=== PATIENT | female | born 1980 ===

== ENCOUNTER 2017-05-18 14:17 | Emergency (ER) | payer SELFPAY ==
[2017-05-18 14:23] VITALS: BP 123/79; PULSE 99; RESP 16; TEMP 98.9; O2SAT 97
--- NOTE | 2017-05-18 14:42 | ED PDOC ---
HPI: Female Pain Time Seen by Provider: 05/18/17 14:24 Chief Complaint (Nursing): Female Genitourinary Chief Complaint (Provider): dysuria History Per: Patient History/Exam Limitations: no limitations Onset/Duration Of Symptoms: Days (x2 days) Current Symptoms Are (Timing): Still Present Additional Complaint(s): 37 y/o female presents to the ED complaining of dysuria x3 days. Denies fever, chills, nausea, vomiting or any further medical complaints. Patient denies associated vaginal discharge, she denies any concern for STD. Past Medical History Reviewed: Historical Data, Nursing Documentation, Vital Signs Vital Signs: Last Vital Signs Temp 98.9 F 05/18/17 14:21 Pulse 99 H 05/18/17 14:21 Resp 16 05/18/17 14:21 BP 123/79 05/18/17 14:21 Pulse Ox 97 05/18/17 14:21 - Medical History PMH: No Chronic Diseases - Surgical History Surgical History: Hernia Repair Other surgeries: tubal ligation - Family History Family History: States: No Known Family Hx - Living Arrangements Living Arrangements: With Family - Social History Current smoker - smoking cessation education provided: No Alcohol: None Drugs: Denies - Home Medications Home Medications: Ambulatory Orders Medication Instructions Recorded Nitrofurantoin Macrocrystals 100 mg PO BID #14 tab 05/18/17 [Macrobid] - Allergies Allergies/Adverse Reactions: Allergies Allergy/AdvReac Type Severity Reaction Status Date / Time No Known Allergies Allergy Verified 05/18/17 14:19 Review of Systems ROS Statement: Except As Marked, All Systems Reviewed And Found Negative (As per HPI, otherwise negative) Constitutional: Negative for: Fever, Chills Gastrointestinal: Negative for: Nausea, Vomiting Genitourinary Female: Positive for: Dysuria, Frequency. Negative for: Incontinence, Hematuria, Vaginal Discharge, Vaginal Bleeding Physical Exam - Reviewed Nursing Documentation Reviewed: Yes Vital Signs Reviewed: Yes - Physical Exam Appears: Positive for: Well, Non-toxic, No Acute Distress Skin: Positive for: Normal Color. Negative for: Rash Eye Exam: Positive for: Normal appearance Cardiovascular/Chest: Positive for: Regular Rate, Rhythm. Negative for: Murmur Respiratory: Positive for: Normal Breath Sounds. Negative for: Accessory Muscle Use, Respiratory Distress Gastrointestinal/Abdominal: Positive for: Normal Exam, Soft. Negative for: Tenderness, Distended, Guarding, Rebound Neurologic/Psych: Positive for: Alert, Oriented (x3) - Laboratory Results Urine POC: Negative Urine dip results: Positive for: Leukocyte Esterase (large), Blood (large). Negative for: Nitrate, Ketones, Glucose, Bilirubin, Protein - ECG O2 Sat by Pulse Oximetry: 97 (RA) Pulse Ox Interpretation: Normal Medical Decision Making Medical Decision Making: Time: 14:38 Initial Impression: 37 year old with dysuria Plan: Urine dipstick Urine Urine culture Reevaluation Time: 14:45 Upon provider reevaluation patient is feeling better, is medically stable, and requires no further treatment in the ED at this time. Patient will be discharged home with Rx for Macrobid. Counseling was provided and all questions were answered regarding diagnosis and need for follow up with clinic in [place]. There is agreement to discharge plan. Return if symptoms persist or worsen. Clinical Impression: Urinary Tract Infection Scribe Attestation: Documented by Marilee Guzman acting as a scribe for Nadine Restrepo MD. Scribe Attestation: All medical record entries made by the Scribe were at my direction and personally dictated by me. I have reviewed the chart and agree that the record accurately reflects my personal performance of the history, physical exam, medical decision making, and the department course for this patient. I have also personally directed, reviewed, and agree with the discharge instructions and disposition. Disposition - Clinical Impression Clinical Impression: Urinary tract infection - Patient ED Disposition Is Patient to be Admitted: No Counseled Patient/Family Regarding: Studies Performed, Diagnosis, Need For Followup, Rx Given - Disposition Referrals: [facility] [place] [Outside] Disposition: Routine/Home Disposition Time: 14:41 Condition: STABLE Additional Instructions: TAKE RX MEDS DIRECTED TYLENOL OR ADVIL FOR PAIN DRINK PLENTY OF FLUIDS FOLLOW UP IN 2-3 DAYS WITH CLINIC. Prescriptions: Nitrofurantoin Macrocrystals [Macrobid] 100 mg PO BID #14 tab Instructions: Urinary Tract Infection in Women (ED) Forms: [facility] ([employer]) Print Language: LATVIAN
== END 2017-05-18 14:57 | disposition home or self-care (01) ==
LOC: H.ER 14:17
DX: N39.0 Urinary tract infection, site not specified (principal)